=== PATIENT | female | born 1990 | race African-American/Black ===

== ENCOUNTER 2017-04-25 12:03 | Emergency (ER) | payer SELFPAY ==
[~2017-04-25] VITALS: Ht 162.6 cm; Wt 116.8 kg
[2017-04-25 13:00] VITALS: BP 125/81
== END 2017-04-25 13:34 | disposition home or self-care (01) ==
LOC: EMS 12:05
DX: J02.9 Acute pharyngitis, unspecified (principal); R03.0 Elevated blood-pressure reading, without diagnosis of hypertension
CPT/HCPCS: 99283